=== PATIENT | male | born 1995 | race Caucasian/White ===

== ENCOUNTER 2020-12-12 10:11 | Emergency (ER) | payer BC ==
[2020-12-12] MEDS ORDERED: Dextrose 5%-Lactated Ringers 1,000 ML IV SCH (10:45)
--- NOTE | 2020-12-12 10:46 | EDM.PDOC ---
ED HPI GENERAL MEDICAL PROBLEM - General Chief Complaint: Cardiovascular Problem Stated Complaint: [facility] Time Seen by Provider: 12/12/20 10:30 Source of Information: Reports: Patient History Limitations: Reports: Other (Patient has no recollection of what is happened to him.) - History of Present Illness INITIAL COMMENTS - FREE TEXT/NARRATIVE: 25-year-old male presents to the ED per [facility]. He was tailgating this morning with friends when they started to ask him if he was okay. He remembers feeling slightly dizzy but after that cannot remember what is happened to him. Apparently he lost consciousness and collapsed with his friends catching him before he struck the ground therefore he never got hurt. There is no report of how long he was unresponsive for and whether or not there was seizure activity. Patient did not bite his tongue and he did not lose control of his bladder. He is on Wellbutrin for many months with no seizure issues. He was drinking alcohol fairly heavily yesterday he has not ate or drink yet today had a sip of beer only today. He states he had a mild headache this morning. He takes no other medications. Uses energy drinks periodically nothing recently. Of note he is sinus tachycardia in the monitor at 144/min. He is aware of his heart beating fast in his chest. Onset: Today, Sudden Onset Date: 12/12/20 Onset Time: 09:35 Duration: Minutes:, Improving (He is alert oriented able to answer all questions appropriately.) Location: Reports: Generalized (Apparently felt slightly dizzy and then sink had to suffered a syncope collapse with possible seizure disorder. It is unclear if he was postictal and paramedics are gone at this time) Quality: Reports: Other (Syncope collapse) Severity: Moderate Improves with: Reports: Other (Feels better at this time with mild headache only) Worsens with: Reports: None Context: Reports: Other (Sudden syncope collapse well tailgating with friends and his brother before the football game today.). Denies: Activity, Exercise, Lifting, Sick Contact, Trauma Associated Symptoms: Reports: Confusion, Headaches, Loss of Appetite, Malaise, Weakness. Denies: Chest Pain (He has no recollection knows what has happened to him in the morning.), Cough, cough w sputum, Diaphoresis, Fever/Chills, Nausea/Vomiting, Rash, Seizure (Mild headache when he awoke this morning felt he was hung over.), Shortness of Breath, Syncope Treatments MANAGER USER EXPERIENCE: Reports: Other (see below) (He is on Wellbutrin 300 mg daily he did not take it tablet this morning) - Related Data Allergies Allergy/AdvReac Type Severity Reaction Status Date / Time No Known Allergies Allergy Verified 12/12/20 10:20 Home Meds: Home Meds Escitalopram Oxalate [Lexapro] 20 mg PO DAILY #30 tablet 12/12/20 [Rx] buPROPion HCL [Wellbutrin Xl] 300 mg PO DAILY 12/12/20 [History] Past Medical History HEENT History: Reports: Otitis Media Respiratory History: Reports: Pneumonia, Recurrent Musculoskeletal History: Reports: Fracture Neurological History: Reports: Concussion Psychiatric History: Reports: Depression Social & Family History - Tobacco Use Tobacco Use Status *Q: Never Tobacco User Second Hand Smoke Exposure: No - Caffeine Use Caffeine Use: Reports: Energy Drinks, Soda - Alcohol Use Days Per Week of Alcohol Use: 2 Number of Drinks Per Day: 5 Total Drinks Per Week: 10 - Recreational Drug Use Recreational Drug Use: Yes Recreational Drug Type: Reports: Marijuana/Hashish - Living Situation & Occupation Living situation: Reports: Single Occupation: Employed ED ROS GENERAL - Review of Systems Review Of Systems: See Below Constitutional: Reports: No Symptoms HEENT: Reports: No Symptoms Respiratory: Reports: No Symptoms Cardiovascular: Reports: No Symptoms Endocrine: Reports: No Symptoms GI/Abdominal: Reports: No Symptoms : Reports: No Symptoms Musculoskeletal: Reports: No Symptoms Skin: Reports: No Symptoms Neurological: Reports: No Symptoms Psychiatric: Reports: Depression (He has been on Wellbutrin for over 8 months. No recent changes to medications or dose.) Hematologic/Lymphatic: Reports: No Symptoms Immunologic: Reports: No Symptoms ED EXAM, GENERAL - Physical Exam Exam: See Below Exam Limited By: No Limitations General Appearance: Alert, WD/WN, Anxious, Mild Distress, Other (Patient has no recollection of what is happened to him this morning. Temperature is 36.4 degrees. Heart rate is 148/min and sinus tachycardia on the monitor. Respiratory to 20 with O2 sats of 92% room air. His hands are cold however this is likely inaccurate. BP is 140/65) Eye Exam: Bilateral Eye: Normal Inspection (No blepharal pallor or scleral icterus), PERRL Ears: Normal TMs Throat/Mouth: Normal Inspection, Normal Lips, Normal Teeth, Normal Gums, Normal Oropharynx, Other Head: Atraumatic, Normocephalic Neck: Normal Inspection, Supple, Non-Tender, Full Range of Motion. No: Lymphadenopathy (L), Lymphadenopathy (R) Respiratory/Chest: No Respiratory Distress, Lungs Clear, Normal Breath Sounds, No Accessory Muscle Use Cardiovascular: No Edema, No Gallop, No Murmur, No Rub, Tachycardia (Sinus tachycardia monitor at 144/min.) Peripheral Pulses: 3+: Carotid (L), Carotid (R), Posterior Tibial (L), Posterior Tibial (R), Dorsalis Pedis (L), Dorsalis Pedis (R) GI/Abdominal: Normal Bowel Sounds, Soft, Non-Tender, No Organomegaly, No Distention, No Mass, Pelvis Stable, Other (K. Yash abdomen with no scars.). No: Guarding, Rigid, Rebound, Tender Back Exam: Normal Inspection, Full Range of Motion. No: CVA Tenderness (L), CVA Tenderness (R) Extremities: Normal Inspection, Normal Range of Motion, Non-Tender, No Pedal Edema Neurological: Alert, Oriented, CN II-XII Intact, Normal Cognition Psychiatric: Anxious Skin Exam: Warm, Dry, Intact, Normal Color, No Rash #1 Interpretation EKG Date: 12/12/20 Time: 10:22 Rhythm: Other (Sinus tachycardia) Rate (Beats/Min): 140 Spencer: Normal P-Wave: Enlarged (Consider left atrial hypertrophy) QRS: Other (Early R wave transition normal for his age.) ST-T: Other (Mild diffuse early repolarization pattern) QT: Normal EKG Interpretation Comments: Abnormal ECG Course - Vital Signs Last Recorded V/S: Last Vital Signs Temp 36.2 C 12/12/20 13:00 Pulse 100 12/12/20 13:00 Resp 18 12/12/20 13:00 BP 137/81 12/12/20 13:00 Pulse Ox 97 12/12/20 13:00 - Orders/Labs/Meds Orders: Active Orders 24 hr Category Date Time Status Suicide Precautions [RC] .Per Facility Policy Care 12/12/20 10:40 Active Dextrose 5%-Lactated Ringers 1,000 ml Med 12/12/20 10:45 Active IV ASDIRECTED Medication Orders Dextrose/Lactated Ringer's (Dextrose 5%-Lactated Ringers) 1,000 mls @ 999 mls/hr IV ASDIRECTED BENNIE Last Admin: 12/12/20 11:09 Dose: 999 mls/hr Documented by: VANI Labs: Laboratory Tests 12/12/20 12/12/20 12/12/20 Range/Units 11:00 11:00 11:00 WBC 7.32 (4.23-9.07) K/mm3 RBC 4.70 (4.63-6.08) M/mm3 Hgb 14.8 (13.7-17.5) gm/dl Hct 43.9 (40.1-51.0) % MCV 93.4 H (79.0-92.2) fl MCH 31.5 (25.7-32.2) pg MCHC 33.7 (32.2-35.5) g/dl RDW Std Deviation 42.2 (35.1-43.9) fL Plt Count 317 (163-337) K/mm3 MPV 9.0 L (9.4-12.3) fl Neut % (Auto) 74.0 H (34.0-67.9) % Lymph % (Auto) 17.9 L (21.8-53.1) % [place] % (Auto) 6.0 (5.3-12.2) % Eos % (Auto) 0.7 L (0.8-7.0) Baso % (Auto) 0.4 (0.1-1.2) % Neut # (Auto) 5.42 H (1.78-5.38) K/mm3 Lymph # (Auto) 1.31 L (1.32-3.57) K/mm3 [place] # (Auto) 0.44 (0.30-0.82) K/mm3 Eos # (Auto) 0.05 (0.04-0.54) K/mm3 Baso # (Auto) 0.03 (0.01-0.08) K/mm3 Sodium 137 (136-145) mEq/L Potassium 4.3 (3.5-5.1) mEq/L Chloride 101 (98-107) mEq/L Carbon Dioxide 20 L (21-32) mEq/L Anion Gap 20.3 H (5-15) BUN 10 (7-18) mg/dL Creatinine 1.3 (0.7-1.3) mg/dL Est Cr Clr Drug Dosing 89.94 mL/min Estimated GFR (MDRD) > 60 (>60) mL/min BUN/Creatinine Ratio 7.7 L (14-18) Glucose 95 (70-99) mg/dL Lactic Acid 8.1 H* (0.4-2.0) mmol/L Calcium 9.0 (8.5-10.1) mg/dL Total Bilirubin 0.4 (0.2-1.0) mg/dL AST 19 (15-37) U/L ALT 31 (16-63) U/L Alkaline Phosphatase 80 (46-116) U/L Troponin I < 0.017 (0.00-0.056) ng/mL C-Reactive Protein <0.2 (<1.0) mg/dL Total Protein 8.1 (6.4-8.2) g/dl Albumin 4.4 (3.4-5.0) g/dl Globulin 3.7 gm/dL Albumin/Globulin Ratio 1.2 (1-2) Meds: Medications Generic Name Dose Route Start Last Admin Trade Name Freq PRN Reason Stop Dose Admin Dextrose/Lactated Ringer's 1,000 mls @ 999 mls/hr 12/12/20 10:45 12/12/20 11:09 Dextrose 5%-Lactated Ringers IV 999 mls/hr ASDIRECTED BENNIE Administration Discontinued Medications Generic Name Dose Route Start Last Admin Trade Name Freq PRN Reason Stop Dose Admin Levetiracetam 500 mg/ Sodium 105 mls @ 400 mls/hr 12/12/20 11:48 12/12/20 13:00 Chloride IV 12/12/20 12:02 400 mls/hr ONETIME ONE Administration - Radiology Interpretation Free Text/Narrative:: 25-year-old male presents to the ED per [facility] [place] getting ready to tailgate with friends this morning. He has not ate or drank yet today. He was drinking fairly heavily yesterday and last evening. Awoke with a mild headache this morning. His friends were asking him if he was okay and he remembers that and then he suddenly collapsed and they caught him before he hit the ground. It is unclear whether or not someone identified that he was suffering seizure activity. He has no recollection of what is happened to him. He did not lose control of his bowel or bladder and there is no evidence of tongue biting. He has no past history of seizure disorder. Of note he is on Wellbutrin 300 mg XR daily he has not taken his tablet today. Bupropion can cause lowered seizure threshold in patients that are susceptible. He is exhibiting a sinus tachycardia in the 140s partly from adrenaline and being scared. Partly from dehydration. Plan routine labs to include a lactic acid level which will be up if he suffered a seizure. IV will be D5 Ringer's lactate at open. - Re-Assessments/Exams Free Text/Narrative Re-Assessment/Exam: 12/12/20 11:50 White count is normal at 7.32. The auto differential shows 74% neutrophils. Hemoglobin is 14.8 with hematocrit of 43.9 platelet counts 317,000 sodium 137 with potassium 4.3. Chloride 101 with a bicarb of 20. Anion gap is elevated at 20.3. BUN is 10 with a creatinine of 1.3 and a GFR greater than 60. Glucose is 95 lactic acid is elevated at 8.1 strongly suggestive that the patient did suffer a grand mal convulsion. Calcium is 9.0 liver function normal troponin I less than 0.017 C-reactive protein less than 0.2 total protein 8.1 with an albumin fraction of 4.4 plan I am going to give the patient Keppra 500 mg IV to lower the potential for further seizure activity. He is currently on Wellbutrin 300 mg XR which will be discontinued due to its propensity to lowered seizure threshold more so than other antidepressants. I will switch him to citalopram 20 mg once daily starting in a week's time. Heart rate is down to 109/min. 12/12/20 13:26 Patient has completed his Keppra 500 mg IV infusion. He will therefore be discharged to home. He has his girlfriend with him at this time and she will be doing the driving. He will discontinue the Wellbutrin as above. We will start Escitalopram next Monday. Departure - Departure Time of Disposition: 13:27 Disposition: Home, Self-Care 01 Reason for Transfer *Q: Other Condition: Fair Clinical Impression: New onset seizure without head trauma Prescriptions: Escitalopram Oxalate [Lexapro] 20 mg PO DAILY #30 tablet Instructions: Seizure, Adult Referrals: Anyi Patel NP [Primary Care Provider] - Forms: ED Department Discharge Additional Instructions: Evaluation in the emergency room today in regards to sudden loss of consciousness and your friends caught you before you hit the ground hard and therefore suffered no injuries. I could get no firm evidence that you had suffered seizure activity although paramedics mentioned that there was likely seizure activity based on what your friends told them. However lab test done t hrough the emergency room revealed an elevated lactic acid level which confirms that you did in fact have a grand mall seizure with loss of consciousness. Of note Wellbutrin medication that you are using for depression is well known to lower seizure threshold in susceptible patients and precipitate a seizure. Also alcohol use recently also lowers seizure threshold and likely the combination contributed to the seizure today. I did not feel that imaging of your brain was indicated today due to the above findings I reason for a seizure to have occurred. Suggest of course no further alcohol for the next week. Discontinue Wellbutrin medication completely. Start new antidepressant Lexapro 20 mg once daily every morning next Monday, December 19. You were given Keppra antiseizure medication intravenously while in the emergency room to prevent further seizure activity today. Try and resume regular diet and stay well- hydrated as well. You did receive a liter of IV fluids while in the emergency room as well. You should avoid activities that would place you at risk if you have suffered a seizure such as a bathtub, swimming pool climbing etc. I would suggest caution for the next 3 weeks. At this time I will not restrict your ability to drive a motor vehicle other than today you should not drive. If you have any further similar events she would need to return to the emergency room for further evaluation particularly imaging of your brain and neurological consultation. If a person has a seizure of new onset we usually do not start you on antiseizure medications as over 85% of the time patients never have another seizure. Today I think we have good reasons for use of suffered a seizure and therefore antiseizure medication will not be started Sepsis Event Note (ED) - Evaluation Sepsis Screening Result: No Definite Risk - Focused Exam Vital Signs: Vital Signs Temp Pulse Resp BP Pulse Ox 12/12/20 13:00 36.2 C 100 18 137/81 97 12/12/20 10:11 36.4 C 148 H 20 140/65 92 L - My Orders Last 24 Hours: My Active Orders 12/12/20 10:40 Suicide Precautions [RC] .Per Facility Policy 12/12/20 10:45 Dextrose 5%-Lactated Ringers 1,000 ml IV ASDIRECTED - Assessment/Plan Last 24 Hours: My Active Orders 12/12/20 10:40 Suicide Precautions [RC] .Per Facility Policy 12/12/20 10:45 Dextrose 5%-Lactated Ringers 1,000 ml IV ASDIRECTED
[2020-12-12] MEDS ORDERED: levETIRAcetam 500 MG in Sodium Chloride 0.9% 100 ML IV ONE (11:48)
== END 2020-12-12 13:50 | disposition home or self-care (01) ==
LOC: JD.ED 10:11 → SUPCPDRO 10:11 → JD.ED 13:50
DX: R56.9 Unspecified convulsions (principal); R94.31 Abnormal electrocardiogram [ECG] [EKG]
CPT/HCPCS: 36415; 80053; 83605; 84484; 85025; 86140; 96365; 99285; J1953; J7121

== ENCOUNTER 2022-04-04 18:43 | Emergency (ER) | payer BC | END 2022-04-04 20:20 | disposition home or self-care (01) | LOC: JD.ED 18:43 | DX: S09.90XA Unspecified injury of head, initial encounter (principal); W18.09XA Striking against other object with subsequent fall, initial encounter | CPT/HCPCS: 99282; 99283 ==